=== PATIENT | male | born 1945 | race Native Hawaiian/Other Pacific Islander ===

== ENCOUNTER 2017-06-18 12:57 | Emergency (ER) | payer MEDICARE, OTHER ==
[2017-06-18] MEDS ORDERED: Adacel Vial IM ONE ×2 (13:02→13:38)
--- NOTE | 2017-06-18 13:09 | ERPHSYRPT ---
- History of Present Illness Time Seen by Provider: 06/18/17 13:02 Source: patient, family, EMS Exam Limitations: clinical condition (confused) Physician History: patient was at [facility] in a motorized wheelchair that was not stationary when it tipped over and he fell out hitting his head on the right side frontal area; he tried driving the wheelchair over the curb instead of the handicap area; no loc; no neck pain; denies head pain; his only complaint is pain at the base of his right 5th finger - volar MCP; no other complaints; Accu check in route was wnl; had been placed in C collar but no pain Occurred: just prior to arrival, this afternoon Severity: mild Head Injury Location: frontal (right side) Method of Injury: fell (from sitting position) Loss of Consciousness: no loss of consciousness, memory impairment Associated Symptoms: headaches (mild non-specific) Allergies/Adverse Reactions: No Known Drug Allergies Allergy (Unverified 06/18/17 13:14) Home Medications: Carvedilol 3.125 mg [Coreg 3.125 MG] 3.125 mg PO BID 06/18/17 [History] Cholecalciferol (Vitamin D3) [Vitamin D3] 5,000 unit PO DAILY 06/18/17 [History] Cholestyramine/Aspartame [Prevalite Packet] 4 gm PO BID 06/18/17 [History] Dicyclomine HCl [Bentyl] 10 mg PO QID 06/18/17 [History] Eluxadoline [Viberzi] 75 mg PO TID 06/18/17 [History] Escitalopram Oxalate 10 mg [Lexapro 10 MG] 10 mg PO DAILY PRN PRN 06/18/17 [ History] Febuxostat [Uloric] 40 mg PO DAILY 06/18/17 [History] Folic Acid 1 mg PO DAILY 06/18/17 [History] Furosemide 40 mg [Lasix 40 MG] 40 mg PO DAILY 06/18/17 [History] Gabapentin [Neurontin] 100 mg PO HS 06/18/17 [History] Hydrocodone/Acetaminophen [Hydrocodon-Acetaminophn 10-325] 1 each PO UD [History] Hydroxychloroquine Sulfate [Plaquenil] 200 mg PO BID 06/18/17 [History] Insulin Detemir [Levemir] 0 unit SQ DAILY 06/18/17 [History] Leflunomide 20 mg PO 3XW 06/18/17 [History] PANTOPRAZOLE 40 mg Tablet [Protonix 40MG Tablet] 40 mg PO QAM 06/18/17 [ History] Prednisone 10 mg [Deltasone 10 mg] 10 mg PO DAILY 06/18/17 [History] Saccharomyces Boulardii [Florastor] 250 mg PO BID 06/18/17 [History] Spironolactone 25 mg [Aldactone 25 MG] 25 mg PO BID 06/18/17 [History] Warfarin Sodium 2 mg [Coumadin 2 MG] 2 mg PO DAILY 06/18/17 [History] - Review of Systems Constitutional: No Symptoms Eyes: No Eye Pain, No Itchy, No Photophobia, No Vision Changes, No Double Vision Ears, Nose, & Throat: No Ear Pain, No Tinnitus, No Nose Pain, No Epistaxis, No Mouth Pain, No Painful Swallowing Respiratory: No Cough, No Dyspnea, No Wheezing Cardiac: No Chest Pain, No Palpitations, No Syncope Abdominal/Gastrointestinal: No Abdominal Pain, No Nausea, No Vomiting, No Diarrhea Genitourinary Symptoms: No Symptoms Musculoskeletal: Fall (from sitting), Injury (right forehead and skin tear rihgt lateral elbow and abrasion and pain volar base right 5th MCP), Joint Pain (right 5th mcp) Skin: Other (skin tear right lateral elbow and abrasion right forehead) Neurological: Headache (mild non-specific), No Dizziness, No Focal Weakness, No Seizure Psychological: No Symptoms Endocrine: Excessive Sweating, No Hair Changes, No Cold Intolerance Hematologic/Lymphatic: Easy Bleeding, Easy Bruising, Other (on coumadin) Immunological/Allergic: No Symptoms - Past Medical History Pertinent Past Medical History: Yes ENT History: Cataracts (bialteral surgery r pupol diated > left by hx) Cardiac History: Angina, Congestive Heart Failure, High Cholesterol, Hypertension Respiratory History: COPD, Emphysema Endocrine Medical History: Diabetes Type I Musculoskeletal History: Arthritis GI Medical History: No Pertinent History History: No Pertinent History Psycho-Social History: No Pertinent History Male Reproductive Disorders: No Pertinent History - Past Surgical History Past Surgical History: Yes Musculoskeletal: Amputation, Orthopedic Surgery - Social History Smoking Status: Former smoker Exposure to second hand smoke: Yes Alcohol Use: Socially Drug Use: none Patient Lives Alone: No Significant Family History: heart disease, diabetes, hypertension - Nursing Vital Signs Nursing Vital Signs: Initial Vital Signs Temperature 97.5 F 06/18/17 13:00 Pulse Rate 108 H 06/18/17 13:00 Respiratory Rate 18 06/18/17 13:00 Blood Pressure 115/82 06/18/17 13:00 O2 Sat by Pulse Oximetry 92 L 06/18/17 13:00 Pain Scale Pain Intensity 5 - Amanuel Coma Score Best Eye Response ([place]): (4) open spontaneously Best Verbal Response (Amanuel): (5) oriented Best Motor Response ([place]): (6) obeys commands Amanuel Total: 15 - Physical Exam General Appearance: mild distress, alert, obese Head Injury: contusions (non-tender abrasion right forehead), ecchymosis (righ tforehead), No Rivera's Sign, No lacerations, No raccoon eyes, No tenderness Eye Exam: right eye: PERRL (dialted 4-5 mm and left PP 1-2 mm stated normal by and patient from old eye injury), bilateral eye: normal inspection, EOMI, other (fundi benign; no papiledema) ENT Exam: airway nml, nml ext.inspection, No evidence of ENT injury, No dental injury, No hemotympanum, No clotted nasal blood, No malocclusion Neck Exam: supple, trachea midline, full range of motion, normal alignment, normal inspection, c-collar in place (removed after clearing C spine), No focal neuro deficit, No paraspinous muscle tender, No pain on movement of neck, No tenderness, No carotid bruit, No JVD, No subcutaneous emphysema Cardiovascular/Respiratory Exam: chest non-tender, normal breath sounds, regular rate/rhythm, heart sounds normal, no ecchymosis, no JVD, no M/R/G, no respiratory distress Gastrointestinal/Abdominal Exam: soft, non tender, normal bowel sounds, No no distention (softly distended), No no guarding, No no organomegaly, No no pulsatile mass Rectal Exam: deferred Back Exam: normal inspection, normal range of motion, No CVA tenderness, No vertebral tenderness, No rash Extremity Exam: non-tender, normal range of motion, normal capillary refill, pedal edema (chronic), No normal inspection (skin abrasion righ telbow ; abrasion right forhead; ) Mental Status Exam: alert, cooperative, other (poor memory of the event initially; clearing over time; reported him normal MS by the time she arrvied and talked with him), No oriented x 3 (o to self and time; confused abut place) hogshead hooper Exam: normal hearing, normal speech, No PERRL (old eye injury right dialted) Motor/Sensory Exam: no motor deficit, no sensory deficit, CN II-XII intact Skin Exam: normal color, warm, dry, abrasion (rihg tforehead), laceration (skin tear superficial right elbow), No rash, No petechiae - Course Nursing assessment & vital signs reviewed: Yes EKG Interpreted by Me: RATE (107), A-fib (w RVR), Right [place] Deviation, NORMAL INTERVALS, Right Bundle Branch Block (ICRBBB), Non-specific ST Changes, Other ( no evidence of hyper kalemia or toxic arrythmia) Rhythm Strip: Rate, Atrial Fibrillation (w RVR at 108) - Radiology Exams Right Hand X-ray Interpretation: Reviewed by me, Teleradiologist Report, Negative, No Fracture, Other (DJD ; 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 by ; ) - CT Exams Head CT Interpretation: Negative, Tele-radiologist Report, No/Intracranial Hemorrhag Ordered Tests: Active Orders 24 hr Category Date Time Status Panel Machine Setter STAT Care 06/18/17 14:26 Active Cold Application STAT Care 06/18/17 13:02 Active EKG-ER Only STAT Care 06/18/17 14:26 Active IV Insertion STAT Care 06/18/17 14:50 Active Re-Check Vital Signs STAT Care 06/18/17 13:02 Active Wound Care STAT Care 06/18/17 13:02 Active HAND (MINIMUM 3 VIEWS) Stat Exams 06/18/17 13:15 Completed HEAD WITHOUT CONTRAST [CT] Stat Exams 06/18/17 13:03 Completed CBC W DIFF Stat Lab 06/18/17 13:15 Completed CMP Stat Lab 06/18/17 13:15 Completed Glucose,Critical Care Urgent Lab 06/18/17 13:02 Stop Req Manual Differential NC Stat Lab 06/18/17 13:15 Completed PROTIME WITH INR Stat Lab 06/18/17 13:15 Completed PTT Stat Lab 06/18/17 13:15 Completed Medication Summary Discontinued Medications Generic Name Dose Route Start Last Admin Trade Name Nayeli PRN Reason Stop Dose Admin Bacitracin 0.9 gm 06/18/17 13:46 06/18/17 13:52 Baciguent Packet TP 06/18/17 13:47 0.9 gm STAT ONE Administration Bacitracin Confirm 06/18/17 13:50 Baciguent Packet Administered 06/18/17 13:51 Dose 1 gm .ROUTE .STK-MED ONE Diphtheria/Tetanus/Acell Pertussis 0.5 ml 06/18/17 13:02 06/18/17 13:43 Adacel Vial IM 06/18/17 13:03 0.5 ml .ONCE ONE Administration Diphtheria/Tetanus/Acell Pertussis Confirm 06/18/17 13:38 Adacel Vial Administered 06/18/17 13:39 Dose 0.5 ml IM .STK-MED ONE Lab/Rad Data: Laboratory Result Diagrams 06/18/17 13:15 06/18/17 13:15 Laboratory Results 06/18/17 06/18/17 06/18/17 Range/Units 13:15 13:15 13:15 WBC 13.5 H (4.0-10.5) K/mm3 RBC 4.35 (4.1-5.6) M/mm3 Hgb 11.9 L (12.5-18.0) gm/dl Hct 38.0 L (42-50) % MCV 87.4 (78-100) fl MCH 27.3 (26-32) pg MCHC 31.3 L (32-36) g/dl RDW 18.4 H (11.5-14.0) % Plt Count 124 L (150-450) K/mm3 MPV 13.4 H (6-9.5) fl Gran % 82.9 H (36.0-66.0) % Lymphocytes % 6.5 L (24.0-44.0) % Monocytes % 8.8 (0.0-12.0) % Eosinophils % 1.6 (0.00-5.0) % Basophils % 0.2 (0.0-0.4) % Basophils # 0.03 (0-0.4) INR 8.10 H* (0.8-3.0) APTT 58.3 H (24.1-36.1) SECONDS Sodium 134 L (136-145) mEq/L Potassium 5.9 H (3.5-5.1) mEq/L Chloride 100 (98-107) mEq/L Carbon Dioxide 20.9 L (21-32) mEq/L Anion Gap 18.7 H (5-15) MEQ/L BUN 108 H (9-20) mg/dL Creatinine 2.78 H (0.55-1.30) mg/dl Estimated GFR 24 ML/MIN Glucose 172 H (70-110) MG/DL Calcium 9.0 (8.5-10.1) mg/dL Total Bilirubin 1.00 (0.2-1.0) mg/dL AST 21 (15-37) U/L ALT 37 (12-78) U/L Alkaline Phosphatase 254 H (46-116) U/L Serum Total Protein 6.3 L (6.4-8.2) gm/dL Albumin 3.5 (3.4-5.0) g/dL reviewed - Progress Progress: improved (after xr), re-examined (after xr) Progress Note: 06/18/17 13:18 arrived and confirmed hx; will get CT of head and xr righ thand; other injuries old per ; will check INR , monitor and recheck 06/18/17 13:[address] and xr; CT neg; XR right hand djd no fx seen; alert OX3; normal MS looks good; feels good; memory wnl; no defecits; cbc ok; INR pending; will monitor and recheck ; to bedside; abrasions cleaned and dressed; tetanus updated 06/18/17 13:[address] xr and ct findings with patient and ; INR pending 06/18/17 14:04 INR elevated at 8.1 and PTT 58.3 and PT 95.2; states take 2 mg po Q daily for a long time; they have trouble regulating his levels; no history of overt bleeding recently; / BS up 172; BUN up 108; Cr up 2.78; Na== low 134 and K++ hi 5.9; Dr Melgar his LMD was consulted and agrees with admission; Family requested admission to [facility] if admission required; will consult Hospitalist covering at [place] to accept admission. 06/18/17 14:27 Dr Rodriguez at [facility] consulted at family request and will accept transfer for admission; family notified; awaiting bed assignment; will transfer ACLS 06/18/17 15:02 Bed assigned; ALS crew called for transfer; Discussed with Dr.: Other (Dr Melgar , AKI; Dr Rodriguez Hospitalist at [facility] consulted and accpeted the patient for transfer at 1425) Will see patient in: hospital (full admit) Counseled pt/family regarding: lab results, diagnosis, need for follow-up, rad results - Departure Time of Disposition: 15:15 Departure Disposition: Transfer (to Dr Rodriguez, Hospitalist at [facility]) Clinical Impression: Head injury due to trauma, Elevated INR, Hyperkalemia, Renal failure Condition: Serious Critical Care Time: Yes Critical Care Time(excluding separately billable procedures): 30-74 minutes Referrals: DEBBIE MELGAR [Primary Care Provider] - Instructions: Contusion
[2017-06-18 13:29] LABS: BASOPHIL % 0.2 % (0.0-0.4); Eosinophil % 1.6 % (0.00-5.0); Granulocytes % 82.9 % (36.0-66.0); Lymphocytes % 6.5 % (24.0-44.0); Mean Cell Volume 87.4 fl (78-100); Mean Platelet Volume 13.4 fl (6-9.5); Monocytes % 8.8 % (0.0-12.0); Platelet Count 124 K/mm3 (150-450); Red Blood Count 4.35 M/mm3 (4.1-5.6); Red Cell Distribution Width 18.4 % (11.5-14.0); White Blood Count 13.5 K/mm3 (4.0-10.5)
[2017-06-18 13:36] LABS: Mean Corpuscular Hemoglobin 27.3 pg (26-32)
--- NOTE | 2017-06-18 13:37 | XRAY ---
Indication: Right frontal head injury following fall. Patient on blood thinners. Multiple contiguous axial images obtained through the head without contrast. Comparison: None Age-appropriate global atrophy and minimal periventricular degenerative micro-ischemia bilaterally. No acute intracranial hemorrhage, abnormal extra-axial fluid collection, or mass effect. Fourth ventricle is midline without hydrocephalus. Bony calvarium intact. Visualized paranasal sinuses and mastoid air cells are pneumatized and clear. Impression: Nonacute senile brain. CT DI 50.75
[2017-06-18 13:39] LABS: PTT 58.3 SECONDS (24.1-36.1)
[2017-06-18 13:43] LABS: PROTIME 95.2 SECONDS (8.83-12.87)
[2017-06-18] MEDS ORDERED: BACIGUENT PACKET TP ONE (13:46)
[2017-06-18 13:50] LABS: ALBUMIN 3.5 g/dL (3.4-5.0); ANION GAP 18.7 MEQ/L (5-15); Carbon Dioxide 20.9 mEq/L (21-32); Potassium 5.9 mEq/L (3.5-5.1); Total Protein 6.3 gm/dL (6.4-8.2)
[2017-06-18] MEDS ORDERED: BACIGUENT PACKET ONE (13:50)
--- NOTE | 2017-06-18 13:54 | XRAY ---
Indication: Pain following fall. Comparison: None 3 views of the right hand demonstrates distal ulna dislocated posteriorly with adjacent soft tissue swelling. Elsewhere osteopenia, radiocarpal joint advanced degenerative changes with scapholunate advanced collapse (SLAC) appearance, first/second metacarpal multangular degenerative changes, and scattered vascular calcifications.
[2017-06-18 14:00] LABS: INR 8.1 (0.8-3.0)
[2017-06-18 14:53] VITALS: O2SAT 92
[2017-06-18 15:19] LABS: ANISOCYTOSIS 1+; BAND 2 % (0.0-2.0); Eosinophil 6 % (0.00-3.0); Platelet Estimate NORMAL (NORMAL); Total Cells Counted 100; Toxic Granulation 1+
[2017-06-18 15:48] VITALS: BP 99/64; PULSE 89
== END 2017-06-18 15:48 | disposition critical access hospital (66) ==
LOC: ED 12:57
DX: S00.93XA Contusion of unspecified part of head, initial encounter (principal); V00.811A Fall from moving wheelchair (powered), initial encounter; M79.644 Pain in right finger(s); S00.81XA Abrasion of other part of head, initial encounter; R58 Hemorrhage, not elsewhere classified; S50.311A Abrasion of right elbow, initial encounter; Z79.899 Other long term (current) drug therapy; Z79.01 Long term (current) use of anticoagulants; Z79.891 Long term (current) use of opiate analgesic
CPT/HCPCS: 36415; 70450; 73130; 80053; 85025; 85610; 85730; 90471; 90715; 93005; 93041; 99285; A9270-GY